=== PATIENT | female | born 1960 | race Caucasian/White ===

== ENCOUNTER 2025-06-16 06:59 | Day surgery (SDC) | payer MEDICARE, OTHER ==
[2025-06-15 10:08] VITALS: BMI 28.3
[~2025-06-16 06:59] MED LIST: EPINEPHrine 0.3 MG in Ophthalmic Irrigation Solution 500 ML IRR SCH
[2025-06-16] MEDS ORDERED: Cyclopentolate 1% Opth Drop 2 ML BOT ONE (07:56)
[2025-06-16] MEDS ORDERED: PROPOFOL 20 ML ONE (09:34)
[2025-06-16] MEDS ORDERED: Maxitrol 0.1% Opth Oint 3.5 GM TUBE ONE (09:49)
[2025-06-16] MEDS ORDERED: Lidocaine 4% PF 5 ML AMP ONE (09:49)
[2025-06-16] MEDS ORDERED: CEFAZOLIN 1 GM VIAL ONE (09:49)
[2025-06-16] MEDS ORDERED: Lidocaine 1% PF 5 ML VIAL ONE (09:49)
== END 2025-06-16 10:58 | disposition home or self-care (01) ==
LOC: SDC 06:59
PROVIDERS: ATTEND Ophthalmology Retina Specialist
PROC: 08T43ZZ Resection of Right Vitreous, Percutaneous Approach (ICD-10-PCS; principal; 2025-06-16)
PROC: 08NE3ZZ Release Right Retina, Percutaneous Approach (ICD-10-PCS; 2025-06-16)
DX: H35.341 Macular cyst, hole, or pseudohole, right eye (principal); I10 Essential (primary) hypertension; E78.5 Hyperlipidemia, unspecified
CPT/HCPCS: 67042; J0166; J2250; J2704; J3010; 67025; 93005; 93010; J0690; J3301; J3490

== ENCOUNTER 2025-07-14 06:24 | Day surgery (SDC) | payer MEDICARE, OTHER ==
[2025-07-13 12:28] VITALS: BMI 28.3
[2025-07-14] MEDS ORDERED: Maxitrol 0.1% Opth Oint 3.5 GM TUBE ONE (08:17)
[2025-07-14] MEDS ORDERED: Lidocaine 1% PF 5 ML VIAL ONE ×2 (08:17→08:28)
[2025-07-14] MEDS ORDERED: CEFAZOLIN 1 GM VIAL ONE (08:17)
[2025-07-14] MEDS ORDERED: Lidocaine 4% PF 5 ML AMP ONE (08:17)
[2025-07-14] MEDS ORDERED: PROPOFOL 200 MG/20 ML VIAL ONE (08:17)
== END 2025-07-14 09:30 | disposition home or self-care (01) ==
LOC: SDC 06:24
PROVIDERS: ATTEND Ophthalmology Retina Specialist
PROC: 08B43ZZ Excision of Right Vitreous, Percutaneous Approach (ICD-10-PCS; principal; 2025-07-14)
DX: H35.341 Macular cyst, hole, or pseudohole, right eye (principal); E78.5 Hyperlipidemia, unspecified; I10 Essential (primary) hypertension; E11.9 Type 2 diabetes mellitus without complications; Z79.899 Other long term (current) drug therapy
CPT/HCPCS: 67025; 67042; J0166; J2250; J3010; J0690; J2704; J3301; J3490